=== PATIENT | male | born 1990 | race Caucasian/White ===

== ENCOUNTER 2019-07-01 17:36 | Emergency (ER) | payer OTHER ==
[2019-07-01 18:29] LABS: Amphetamine Screen,Urine Not Detected (NotDetected); Barbiturate Screen,Urine Not Detected (NotDetected); Benzodiazepines Screen,Urine Not Detected (NotDetected); Cocaine Screen,Urine Not Detected (NotDetected); Methadone Screen, Urine Not Detected (NotDetected); Opiate Screen,Urine Not Detected (NotDetected); Oxycodone Screen, Urine Not Detected (NotDetected); Phencyclidine Screen,Urine Not Detected (NotDetected); Tricyclic Antidepressant,Urine Not Detected (NotDetected); Urn Cannabinoid Scrn Detected (NotDetected)
--- NOTE | 2019-07-01 19:54 | ED ---
Psych HPI - General Chief Complaint: Psychiatric Symptoms Stated Complaint: EPS eval Time Seen by Provider: 07/01/19 17:40 Source: patient Mode of arrival: ambulatory - History of Present Illness Initial Comments: The patient is a 28-year-old male with no past medical history presents emergency department for EPS evaluation. He states that his girlfriend broke up with him and he became very upset. They got into an altercation and police were called. He told police that he wanted to harm himself because he didn't want to go to group home. Denies previous history of psychiatric illness. Does not take any medications. States that he truly does not want to harm himself or anyone else but said the statements out of aggression and fearful going to group home. He denies any drug use. There are no alleviating, precipitating or modifying factors - Related Data Allergies Allergy/AdvReac Type Severity Reaction Status Date / Time No Known Allergies Allergy Verified 07/01/19 17:42 Review of Systems ROS Statement: Those systems with pertinent positive or pertinent negative responses have been documented in the HPI. ROS Other: All systems not noted in ROS Statement are negative. Past Medical History Past Medical History: Hypertension History of Any Multi-Drug Resistant Organisms: None Reported Past Surgical History: Orthopedic Surgery Additional Past Surgical History / Comment(s): left ankle, Past Psychological History: No Psychological Hx Reported Smoking Status: Current every day smoker Past Alcohol Use History: Occasional Past Drug Use History: Marijuana General Exam Limitations: no limitations General appearance: alert, in no apparent distress Head exam: Present: atraumatic, normocephalic, normal inspection Eye exam: Present: normal appearance, PERRL, EOMI. Absent: scleral icterus, conjunctival injection, periorbital swelling ENT exam: Present: normal exam, mucous membranes moist Neck exam: Present: normal inspection. Absent: tenderness, meningismus, lymphadenopathy Respiratory exam: Present: normal lung sounds bilaterally. Absent: respiratory distress, wheezes, rales, rhonchi, stridor Cardiovascular Exam: Present: regular rate, normal rhythm, normal heart sounds. Absent: systolic murmur, diastolic murmur, rubs, gallop, clicks GI/Abdominal exam: Present: soft, normal bowel sounds. Absent: distended, tenderness, guarding, rebound, rigid Extremities exam: Present: normal inspection, full ROM, normal capillary refill. Absent: tenderness, pedal edema, joint swelling, calf tenderness Back exam: Present: normal inspection Neurological exam: Present: alert, oriented X3, CN II-XII intact Psychiatric exam: Present: normal affect, normal mood Skin exam: Present: warm, dry, intact, normal color. Absent: rash Course Vital Signs 07/01/19 07/01/19 07/01/19 17:36 19:33 21:26 Temperature 100.1 F H 97 F L 97.4 F L Pulse Rate 110 H 74 71 Respiratory 18 20 18 Rate Blood Pressure 176/95 149/84 144/82 O2 Sat by Pulse 98 99 98 Oximetry Medical Decision Making - Medical Decision Making Upon arrival the patient is placed into room 14. A thorough history and physical exam is performed. The patient is calm and collected upon my exam. He does agree to speak with the social work nurse. I did have the EPS nurse evaluate the patient because of his reported threats. His case is discussed with the psychiatrist business applications manager after they speak with the patients girlfriend. They do feel that he is stable for discharge. The patient denies any suicidal or homicidal ideations. Patient will be discharged home at this time. He is asked to follow up with the resources for which he is given. He does participate in making a safety plan. If he has any new or worsening symptoms, he is to return to the emergency room. He was discharged home in stable condition - Lab Data Lab Results 07/01/19 Range/Units 17:47 Urine Opiates Screen Not Detected (NotDetected) Ur Oxycodone Screen Not Detected (NotDetected) Urine Methadone Screen Not Detected (NotDetected) Ur Propoxyphene Screen Not Detected (NotDetected) Ur Barbiturates Screen Not Detected (NotDetected) U Tricyclic Antidepress Not Detected (NotDetected) Ur Phencyclidine Scrn Not Detected (NotDetected) Ur Amphetamines Screen Not Detected (NotDetected) U Methamphetamines Scrn Not Detected (NotDetected) U Benzodiazepines Scrn Not Detected (NotDetected) Urine Cocaine Screen Not Detected (NotDetected) U Marijuana (THC) Screen Detected H (NotDetected) Disposition Clinical Impression: Depression Disposition: HOME SELF-CARE Condition: Stable Instructions (If sedation given, give patient instructions): Depression (ED) Additional Instructions: Please follow-up with the resources you were given. Return to the emergency room for any new or worsening symptoms Is patient prescribed a controlled substance at d/c from ED?: No Referrals: None,Stated [Primary Care Provider] - 1-2 days Time of Disposition: 19:54
[2019-07-01 21:29] VITALS: BP 144/82; PULSE 71; RESP 18; TEMP 97.4
== END 2019-07-01 21:29 | disposition home or self-care (01) ==
LOC: EC 17:36
DX: F32.9 Major depressive disorder, single episode, unspecified (principal); R45.6 Violent behavior; F17.200 Nicotine dependence, unspecified, uncomplicated
CPT/HCPCS: 80306; 82075; 99285